=== PATIENT | male | born 1995 | race Caucasian/White ===

== ENCOUNTER 2018-04-25 01:26 | Emergency (ER) | payer SELFPAY ==
[~2018-04-25] VITALS: Ht 180.3 cm; Wt 72.6 kg
[~2018-04-25 01:26] MED LIST: TESSALON PERLE100 M1 PO; ZOFRAN ODT4 MG SL
[2018-04-25 01:57] LABS: BILIRUBIN NEGATIVE (NEGATIVE); BLOOD NEGATIVE (NEGATIVE); CLARITY SL CLOUDY (CLEAR); COLOR YELLOW (YELLOW); GLUCOSE NEGATIVE (NEGATIVE); KETONE TRACE (NEGATIVE); LEUKO ESTERASE NEGATIVE (NEGATIVE); NITRITE NEGATIVE (NEGATIVE); SPECIFIC GRAVITY 1.025 (1.005-1.030)
[2018-04-25 02:16] LABS: BACTERIA 2+; CALCIUM OXALATE CRYSTALS 1+; WBC 41-50 wbc/hpf (0-5)
[2018-04-25 02:48] LABS: BASO % 0.5 % (0.0-1.0); EOS # 0.3 10*3/uL (0.0-0.4); EOS % 3.5 % (1.0-4.0); HEMATOCRIT 45.4 % (42.0-52.0); HEMOGLOBIN 15.9 g/dl (14.0-18.0); LYMPH # 2.3 10*3/uL (1.3-4.4); MEAN CORPUSCULAR HGB 31.2 pg (27.0-31.0); MEAN PLATELET VOLUME 11.2 fl (9.6-12.3); MONO # 0.9 10*3/uL (0.1-1.0); NEUT % 58.8 % (47.0-73.0); PLATELET COUNT AUTOMATED 198 10*3/uL (130-400); RED CELL DISTRI WIDTH 11.8 % (0-14.5); WHITE BLOOD COUNT 8.5 10*3/uL (4.8-10.8)
[2018-04-25 03:05] LABS: ALBUMIN 4.1 gm/dl (3.1-4.5); ALKALINE PHOSPHATASE 68 U/L (45-117); BUN 19 mg/dl (7-24); CHLORIDE 104 mmol/L (98-107); CREATININE 1.09 mg/dL (0.70-1.30); LIPASE 102 U/L (73-393); POTASSIUM 4.1 mmol/L (3.5-5.1); SGOT/AST 14 IU/L (3-35); SGPT/ALT 24 U/L (12-78); SODIUM 137 mmol/L (136-145); TOTAL PROTEIN 7.4 gm/dL (6.4-8.2)
[2018-04-25] MEDS ORDERED: CIPRO500 MG PO (03:55)
== END 2018-04-25 04:05 | disposition home or self-care (01) ==
LOC: ED 01:26
PROVIDERS: Emergency Medicine
DX: N39.0 Urinary tract infection, site not specified (principal); G58.0 Intercostal neuropathy

== ENCOUNTER 2018-04-29 17:26 | Emergency (ER) | payer SELFPAY ==
[~2018-04-29] VITALS: Ht 180.3 cm; Wt 72.6 kg
[~2018-04-29 17:26] MED LIST changes: +CIPRO500 MG PO
[2018-04-29] MEDS ORDERED: DOXYCYCLINE100 M3 PO (18:12)
== END 2018-04-29 18:17 | disposition home or self-care (01) ==
LOC: ED 17:26
DX: A56.8 Sexually transmitted chlamydial infection of other sites (principal)

== ENCOUNTER 2020-03-06 14:27 | Emergency (ER) | payer SELFPAY ==
[~2020-03-06] VITALS: Ht 180.3 cm; Wt 83.9 kg
[~2020-03-06 14:27] MED LIST changes: +DOXYCYCLINE100 M3 PO
[2020-03-06 15:07] LABS: BASO % 0.5 % (0.0-1.0); EOS # 0.3 10*3/uL (0.0-0.4); EOS % 3.6 % (1.0-4.0); HEMATOCRIT 45.5 % (42.0-52.0); LYMPH # 1.8 10*3/uL (1.3-4.4); LYMPH % 22.3 % (27.0-41.0); MEAN CELL VOLUME 88.2 fl (80.0-94.0); MEAN CORPUSCULAR HGB 29.8 pg (27.0-31.0); MEAN CORPUSCULAR HGB CONC 33.8 g/dl (33.0-37.0); MONO # 0.7 10*3/uL (0.1-1.0); MONO % 8.2 % (3.0-9.0); NEUT # 5.2 10*3/uL (2.3-7.9); NEUT % 65.1 % (47.0-73.0); PLATELET COUNT AUTOMATED 197 10*3/uL (130-400); RED BLOOD COUNT 5.16 10*6/uL (4.50-5.90); RED CELL DISTRI WIDTH 11.7 % (0-14.5)
[2020-03-06 15:21] LABS: ALBUMIN 3.9 gm/dl (3.1-4.5); ALKALINE PHOSPHATASE 74 U/L (45-117); BUN 9 mg/dl (7-24); CHLORIDE 105 mmol/L (98-107); SGOT/AST 19 IU/L (3-35); SGPT/ALT 38 U/L (12-78); SODIUM 138 mmol/L (136-145); TOTAL PROTEIN 7.4 gm/dL (6.4-8.2)
[2020-03-06 15:27] LABS: ETHYL ALCOHOL < 3.0 mg/dl (<3)
[2020-03-06 15:34] LABS: BILIRUBIN Negative (Negative); BLOOD Negative (Negative); CLARITY Clear (Clear); COLOR Yellow (Yellow); GLUCOSE Negative (Negative); KETONE Negative (Negative); LEUKO ESTERASE Trace (Negative); NITRITE Negative (Negative)
[2020-03-06 15:44] LABS: URINE AMPHETAMINES < 1000 (1000ng/ml); URINE BARBITURATES < 200 (200ng/ml); URINE BENZODIAZEPINES < 200 (200ng/ml); URINE CANNABINOIDS (THC) > 50 (50ng/ml); URINE COCAINE < 300 (300ng/ml); URINE METHADONE < 300 (300ng/ml); URINE OPIATES < 300 (300ng/ml)
[2020-03-06 15:45] LABS: URINE PHENCYCLIDINE < 25 (25ng/ml)
[2020-03-06 15:47] LABS: BACTERIA TRACE; WBC 0-2 wbc/hpf (0-5)
== END 2020-03-06 16:10 | disposition home or self-care (01) ==
LOC: ED 14:27
PROVIDERS: Nurse Practitioner
DX: K59.00 Constipation, unspecified (principal); F17.200 Nicotine dependence, unspecified, uncomplicated

== ENCOUNTER 2020-11-20 11:23 | Emergency (ER) | payer SELFPAY ==
[~2020-11-20] VITALS: Wt 81.6 kg
[2020-11-20] MEDS ORDERED: AMOXICILLIN500 M2 PO (12:54)
== END 2020-11-20 16:30 | disposition home or self-care (01) ==
LOC: ED 11:23
DX: J02.9 Acute pharyngitis, unspecified (principal); R05 Cough; R09.82 Postnasal drip; R59.0 Localized enlarged lymph nodes; F17.200 Nicotine dependence, unspecified, uncomplicated; Z88.8 Allergy status to other drugs, medicaments and biological substances; Z90.49 Acquired absence of other specified parts of digestive tract